=== PATIENT | male | born 1950 | race African-American/Black ===

== ENCOUNTER 2017-03-24 14:00 | Observation (INO) | payer MEDICARE ==
[2017-03-24 17:44] LABS: #Lymphocytes 1.5 thou/uL (1.20-3.40); #Monocytes 0.2 thou/uL (0.11-0.59); #Neutrophils 8.4 thou/uL (1.40-6.50); %Basophils 0.5 % (0.0-1.0); %Eosinophils 0.1 % (0.0-10.0); %Lymphocytes 14.9 % (21.0-51.0); %Monocytes 2.3 % (0.0-10.0); %Neutrophils 82.2 % (42.0-75.0); Hemoglobin 14.4 g/dL (14.0-18.0); Mean Corpuscular HGB CONC 30.4 g/dL (32.0-36.0); Mean Corpuscular Volume 88.9 fl (80.0-94.0); Mean Platelet Volume 8.3 fL (7.4-10.4); Platelet Count 340 thou/uL (130-400); RBC Distribution Width 15.9 % (11.5-14.5); Red Blood Cell (RBC) Count 5.32 mill/uL (4.70-6.10); White Blood Cell (WBC) Count 10.2 thou/uL (4.8-10.8)
[2017-03-24 18:10] LABS: ALT (SGPT) 16 U/L (8-55); AST (SGOT) 15 U/L (5-34); Albumin 4.3 g/dL (3.4-4.8); Alkaline Phosphatase 105 U/L (40-150); Anion Gap 14 mmol/L (10-20); BUN (Urea Nitrogen) 9 mg/dL (8.4-25.7); Bilirubin, Total 0.6 mg/dL (0.2-1.2); Calc. Creatinine Clearance 0 mL/min (70-130); Calcium 9.6 mg/dL (7.8-10.44); Carbon Dioxide 24 mmol/L (23-31); Chloride 103 mmol/L (98-107); Estimated GFR-MDRD Greater than 90; Globulin 4.2 g/dL (2.4-3.5); Glucose 172 mg/dL (80-115); Magnesium 2.1 mg/dL (1.6-2.6); Potassium 3.6 mmol/L (3.5-5.1); Protein, Total 8.5 g/dL (5.8-8.1); Sodium 137 mmol/L (136-145)
[2017-03-24 18:17] LABS: INR-International Normal Ratio 1.3
[2017-03-24 18:24] LABS: CKMB 1.2 ng/mL (0-6.6); Troponin I Less than 0.010 ng/mL (< 0.028)
--- NOTE | 2017-03-24 19:00 | CT ---
NONCONTRAST CT HEAD 03/24/17 HISTORY: Left sided facial weakness. COMPARISON: 01/24/14. FINDINGS: Again noted is the right frontoparietal craniotomy defect. The large area of encephalomalacia in the distribution of the right middle cerebral artery is again seen likely related to remote area of infar ction. Ex vacuo dilatation of the right lateral ventricle is again seen. Previously noted subdural co llection has resolved. There is encephalomalacia also seen in the inferior left frontal lobe. There is decreased attenuation in the periventricular white matter suggesting chronic small vessel is chemic changes, more prominent on the right. There is no evidence of an acute cortical infarction, he morrhage, mass effect, or midline shift. There is an air fluid level partially imaged in the right maxillary antrum with mucous retention cyst in the right sphenoid sinus. Mild mucosal thickening seen in the ethmoidal air cells bilaterally. Ma stoid air cells are clear. No other interval change. IMPRESSION: 1. No acute intracranial abnormality is demonstrated. 2. Areas of encephalomalacia in the distribution of the right middle cerebral artery and in the anterior division of the left middle cerebral artery likely related to remote areas of infarction wit h large area of encephalomalacia seen on the right. 3. Chronic small vessel ischemic changes and cerebral volume loss. 4. Sinus disease. POS: [facility]
--- NOTE | 2017-03-24 19:11 | RAD ---
PORTABLE AP CHEST X-RAY 03/24/17 HISTORY: Seizure. COMPARISON: 04/01/15. FINDINGS: Cardiac silhouette is magnified by projection but stable in size. The pulmonary vasculature is within normal limits. There is increased density at the left lung base probably related to epicardial fat p ad and the enlarged cardiac silhouette. However, atelectasis or small left pleural effusion could not be excluded. The lungs are otherwise clear. No other interval change. IMPRESSION: Findings suggestive of atelectasis and/or small left pleural effusion. Chest is otherwise stable. POS: [facility]
[2017-03-24 19:41] LABS: Bilirubin Negative (Negative); Blood, Urine Small (Negative); Clarity TURBID (Clear); Glucose, Urine (Dipstick) 100 mg/dL (Negative); Leukocyte Trace (Negative); Nitrite Negative (Negative); Protein, Urine (Dipstick) 300 mg/dL (Neg-Trace); Specific Gravity, Urine 1.025 (1.002-1.036); Urobilinogen 0.2 mg/dL (0.2-1.0); pH, Urine 5.5 (5.0-9.0)
[2017-03-24 19:44] LABS: Bacteria/HPF 1+ HPF (None Seen)
[2017-03-24 19:51] LABS: Pathc Cast-AUWi Flag 4.47 (0-2.49)
[2017-03-24 20:02] LABS: Hyaline Casts/LPF NONE SEEN LPF (0-3 Hyaline)
[2017-03-24 20:03] LABS: Manual Microscopic Reviewed? No Path Casts Seen; Other Casts/LPF 0-3 FINELY GRAN LPF (0-3 Hyaline); Renal Epithelial None Seen HPF (0-3); Transitional Epithelial NONE SEEN HPF (0-3)
[2017-03-24 21:03] LABS: Troponin I Less than 0.010 ng/mL (< 0.028)
[2017-03-24 21:54] VITALS: BMI 33.8
[2017-03-24] MEDS ORDERED: Bisacodyl 5 MG TAB PO PRN (23:41)
[2017-03-24] MEDS ORDERED: Acetaminophen 650 MG Suppository PR PRN (23:41)
[2017-03-24] MEDS ORDERED: Acetaminophen 325 MG TAB PO PRN (23:41)
[2017-03-24] MEDS ORDERED: diphenhydrAMINE 25 MG CAP PO PRN (23:43)
[2017-03-24] MEDS ORDERED: cefTRIAXone\\ROCEPHIN 1 GM in Sodium Chloride 0.9% 100 ML IVPB SCH (23:45)
[2017-03-24] MEDS ORDERED: Dextrose 50% Abboject 50 ML SYRINGE SLOW IVP PRN (23:58)
[2017-03-24] MEDS ORDERED: Dextrose 5% in Water 1,000 ML IV PRN (23:58)
[2017-03-24] MEDS ORDERED: HumaLOG 300 UNITS/3 ML VIAL SC PRN (23:58)
[2017-03-25 00:08] LABS: Troponin I Less than 0.010 ng/mL (< 0.028)
[2017-03-25] MEDS ORDERED: WARFARIN PO PRN (00:48)
--- NOTE | 2017-03-25 00:52 | HP ---
PRIMARY CARE PHYSICIAN: Ankur Koroma M.D. CHIEF COMPLAINT: Seizure. HISTORY OF PRESENT ILLNESS: Mr. Hinton is a pleasant 66-year-old gentleman who was seen at [facility] on 03/24/2017. He was brought to the emergency room by his family because he had a seizure that was witnessed by his family. The patient himself is unable to recall what hap pened. According to the family, his eyes were open and he was shaking and unable to talk. He became unresponsive for a while after he stopped shaking. He reportedly had a headache and cough prior to the seizure. The patient at this time denies any chest pain, shortness of breath, fevers or chills. He denies any nausea or vomiting. He reports having a seizure 3 years ago. REVIEW OF SYSTEMS: The following complete review of systems was negative, unless otherwise mentioned in the HPI or below: Constitutional: Weight loss or gain, ability to conduct usual activities. Skin: Rash, itching. Eyes: Double vision, pain. ENT/Mouth: Nose bleeding, neck stiffness, pain, tenderness. Cardiovascular: Palpitations, dyspnea on exertion, orthopnea. Respiratory: Shortness of breath, wheezing, cough, hemoptysis, fever or night sweats. Gastrointestinal: Poor appetite, abdominal pain, heartburn, nausea, vomiting, constipation, or diarr hea. Genitourinary: Urgency, frequency, dysuria, nocturia. Musculoskeletal: Pain, swelling. Neurologic/Psychiatric: Anxiety, depression. Allergy/Immunologic: Skin rash, bleeding tendency. PAST MEDICAL HISTORY: Significant for pulmonary embolism, hypertension, intracranial hemorrhage, sei zure disorder, dyslipidemia, cerebrovascular accident with left-sided weakness, nephrolithiasis, rect al bleed. PAST SURGICAL HISTORY: Significant for craniotomy and PEG tube placement and PEG tube removal. FAMILY HISTORY: Significant for myocardial infarction in his father and diabetes and heart disease i n his mother. SOCIAL HISTORY: He is an ex-smoker. He denies alcohol use or recreational drug use. CODE STATUS: I discussed his code status. He is FULL CODE. ALLERGIES: ACCUPRIL and LISINOPRIL. CURRENT MEDICATIONS: Include amlodipine 10 mg daily, aspirin 81 mg daily, Lipitor 40 mg daily, Benad ryl 25 mg every 6 hours as needed, hydralazine 100 mg 3 times a day, levetiracetam 500 mg 2 times a d ay, losartan 25 mg daily, metformin 500 mg 3 times a day, metoprolol 25 mg 2 times a day, tizanidine 4 mg 3 times a day, Voltaren 75 mg 4 times a day, and warfarin 7.5 mg daily. PHYSICAL EXAMINATION: GENERAL: On examination, Mr. Hinton is awake and alert, not in acute distress. VITAL SIGNS: Blood pressure is 151/91, pulse is 79, he is breathing at rate of 20 and saturating 95% on 2 liters of oxygen. He is afebrile. EYES: No scleral icterus, no conjunctival pallor. ENT: Moist mucosal membranes, no oropharyngeal erythema or exudates. NECK: Supple, nontender, trachea midline. RESPIRATORY: Accessory muscles of breathing are not active. Chest wall movements are symmetric bila terally. LUNGS: Clear to auscultation without wheeze, rhonchi or crepitations. CARDIOVASCULAR: S1 and S2 are heard, regular. LUNGS: Peripheral pulses palpable. No carotid bruit, no pericardial rub. ABDOMEN: Soft, nontender, bowel sounds heard, no hepatomegaly, no splenomegaly. NEUROLOGIC: Speech is slurred. Otherwise, cranial nerves II-XII are intact. Power is 3/5 in the le ft upper extremity, 4+/5 in the left lower extremity, 5/5 in the right upper and lower extremities. No focal sensory deficits. Deep tendon reflexes 2+, plantars downgoing bilaterally. MUSCULOSKELETAL: Power in the 4 extremities as described above. SKIN: No rashes or subcutaneous nodules. LYMPHATIC: No cervical lymphadenopathy. PSYCHIATRIC: Normal mood, normal affect, patient is oriented to person, place, and time. LABORATORY DATA: Mr. Hinton's labs and investigations were reviewed. I reviewed his electrocardio gram, which shows normal sinus rhythm, no ST changes to suggest an acute coronary syndrome. I also r eviewed his chest x-ray, which does not show any pulmonary infiltrates. Radiologist reports left sma ll pleural effusion versus atelectasis. He also had a noncontrast CT scan of the brain, which I did not reveal any acute intracranial abnormality. He had areas of encephalomalacia likely related to pr evious stroke. He also had sinus disease. He has an unremarkable CBC, INR 1.3, normal electrolytes, normal creatinine, unremarkable liver profile and troponin I that is negative x2. Urinalysis is pos itive for protein, glucose, blood, and leukocyte esterase. ASSESSMENT AND PLAN: Mr. Hinton is a pleasant 66-year-old gentleman who was seen at [facility] on 03/24/2017. His problem list includes: 1. Seizures: Mr. Hinton appears to have had a breakthrough seizure. He will be admitted to the ospital and Keppra will be continued. Neurology Service will be consulted for their opinion and poss ible changes to his medications. 2. Urinary tract infection: Suspected, based on urinalysis. The patient denies any urinary symptom s. We will start him on IV ceftriaxone for now and await urine cultures. 3. Pulmonary embolism: INR is subtherapeutic. We will request pharmacy to manage his warfarin. It appears that he had pulmonary embolism in 03/2015. His need for warfarin may need to be reassessed. 4. Hypertension: Monitor vital signs, titrate antihypertensives as needed. 5. Diabetes mellitus type 2. Start Accu-Cheks, insulin sliding scale. Many thanks for allowing me to participate in your patient's care. Please feel free to contact me wi th any questions or concerns. LEVEL OF RISK: High. LEVEL OF COMPLEXITY: High.
[2017-03-25] MEDS ORDERED: cefTRIAXone\\ROCEPHIN 1 GM, Syringe 0.4 ML in Sterile Water 9.6 ML SLOW IVP SCH (01:00)
[2017-03-25 05:20] LABS: INR-International Normal Ratio 1.3; Prothrombin Time 16.5 SEC (12.0-14.7)
[2017-03-25 05:32] LABS: #Basophils 0.1 thou/uL (0.0-0.2); #Eosinphils 0.1 thou/uL (0.0-0.7); #Lymphocytes 3.8 thou/uL (1.20-3.40); #Monocytes 0.6 thou/uL (0.11-0.59); #Neutrophils 5.3 thou/uL (1.40-6.50); %Basophils 0.9 % (0.0-1.0); %Eosinophils 0.7 % (0.0-10.0); %Lymphocytes 38.4 % (21.0-51.0); %Monocytes 6.1 % (0.0-10.0); %Neutrophils 53.8 % (42.0-75.0); Hemoglobin 12.4 g/dL (14.0-18.0); Mean Corpuscular HGB CONC 30.4 g/dL (32.0-36.0); Mean Corpuscular Hemoglobin 26.8 pg (27.0-31.0); Mean Corpuscular Volume 88.1 fl (80.0-94.0); Mean Platelet Volume 9.1 fL (7.4-10.4); Platelet Count 331 thou/uL (130-400); Red Blood Cell (RBC) Count 4.65 mill/uL (4.70-6.10); White Blood Cell (WBC) Count 9.9 thou/uL (4.8-10.8)
[2017-03-25 05:37] LABS: Anion Gap 13 mmol/L (10-20); Carbon Dioxide 21 mmol/L (23-31); Chloride 107 mmol/L (98-107); Potassium 3.7 mmol/L (3.5-5.1); Sodium 137 mmol/L (136-145)
[2017-03-25 05:38] LABS: BUN (Urea Nitrogen) 8 mg/dL (8.4-25.7); Calc. Creatinine Clearance 111 mL/min (70-130); Calcium 8.9 mg/dL (7.8-10.44); Estimated GFR-MDRD Greater than 90; Glucose 125 mg/dL (80-115)
[2017-03-25] MEDS ORDERED: FLU VACC TS2017-18 (>65YR) 0.5 ML SYRINGE IM ONE (09:00)
[2017-03-25] MEDS ORDERED: Prevnar 13-Val Conj/PF 0.5 ML SYRINGE IM ONE (09:00)
[2017-03-25] MEDS ORDERED: Losartan 25 MG TAB PO SCH (09:00)
[2017-03-25] MEDS ORDERED: Atorvastatin Calcium 40 MG TAB PO SCH (09:00)
[2017-03-25] MEDS ORDERED: Metoprolol Tartrate 25 MG TAB PO SCH (09:00)
[2017-03-25] MEDS ORDERED: levETIRAcetam 500 MG TAB PO SCH (09:00)
[2017-03-25] MEDS ORDERED: Amlodipine 10 MG TAB PO SCH (09:00)
[2017-03-25] MEDS: metFORMIN XR 500 MG TAB PO SCH ×2 (10:08→16:03)
[2017-03-25] MEDS: hydrALAZINE 25 MG TAB PO SCH ×2 (10:08→16:03)
[2017-03-25] MEDS: tiZANidine HCl 4 MG TAB PO SCH ×2 (10:09→16:03)
[2017-03-25] MEDS ORDERED: Warfarin Sodium 7.5 MG TAB PO SCH (17:00)
[2017-03-25] MEDS ORDERED: Diclofenac Sodium 25 mg Tablet PO SCH (17:00)
--- NOTE | 2017-03-25 17:38 | PRG ---
DATE OF SERVICE: 03/25/2017 Mr. Hinton is the patient of Dr. Abrams. He has been treated with Keppra for his seizure disorder related to a prior right hemispheric stroke. He refused to take his medicine and as a result had br eakthrough seizure. His reports he had not had any seizures in the last year. She has to crush all his medicines due to his chronic dysphagia related to the prior stroke. He does not have a PEG tube any longer. I would suggest continuing Keppra 500 mg twice a day and I will follow up with him as an outpatient.
[2017-03-25 19:29] VITALS: BP 104/63; TEMP 98.6
--- NOTE | 2017-03-25 23:51 | DIS ---
DATE OF ADMISSION: 03/24/2017 DATE OF DISCHARGE: 03/25/2017 DISCHARGE DIAGNOSES: 1. Breakthrough seizure secondary to Keppra noncompliance. 2. History of pulmonary embolism on chronic Coumadin. 3. Hypertension, stable. 4. Diabetes mellitus type 2, stable. 5. History of cerebrovascular accident with residual left hemiparesis. CONSULTATIONS: Dr. Valerio with Neurology Service. PERTINENT LABORATORY AND X-RAY FINDINGS: Basic metabolic profile within normal limits. Troponin I n egative x3. Prolactin level 7.35. CBC within normal limits. PT 16.5, INR 1.3 on 03/25/2017. Lorin ble chest x-ray dated 03/24/2017 showed no acute cardiopulmonary process. CT of the brain without co ntrast dated 03/24/2017 showed no acute intracranial process. Encephalomalacia of the right middle c erebral artery territory and anterior division of the left middle cerebral artery consistent with valentín or infarct. Chronic ischemic small vessel changes noted. HOSPITAL COURSE: Patient was observed on the stroke unit after initially presenting with breakthroug h seizure in the context of known seizure disorder after a prior CVA. The patient with difficulty sw allowing current Keppra pills due to prior CVA. Recommendations are for liquid Keppra for ease of ad ministration and consistent dosing. The patient was evaluated metabolically and with CT imaging show ing no evidence of acute process. Telemetry monitoring showed sinus mechanism without evidence of ac [employer] arrhythmia or dysrhythmia. The patient overall remained clinically stable throughout the hospita l course and exhibited no evidence of recurrent seizure activity. The patient is ready for discharge 03/25/2017. DISCHARGE MEDICATIONS: 1. Amlodipine 10 mg 1 tab p.o. daily. 2. Aspirin 81 mg 1 tab p.o. daily. 3. Lipitor 40 mg 1 tab p.o. daily. 4. Benadryl 25 mg p.o. q.6 hours p.r.n. 5. Hydralazine 100 mg p.o. t.i.d. 6. Keppra oral solution 100 mg per mL, 5 mL p.o. b.i.d. 7. Losartan 25 mg 1 tab p.o. daily. 8. Metformin ER 500 mg p.o. t.i.d. 9. Metoprolol tartrate 25 mg p.o. b.i.d. 10. Tizanidine 4 mg p.o. t.i.d. 11. Voltaren XR 75 mg p.o. q.i.d. 12. Coumadin 7.5 mg p.o. daily. FOLLOWUP: Patient will follow up with Dr. Turner Koroma within 7 days of discharge. CONDITION ON DISCHARGE: Stable. ACTIVITY: Ad dennis. DIET: Heart healthy and ADA. CODE STATUS: FULL. DISPOSITION: Home on 03/25/2017.
--- NOTE | 2017-04-03 17:05 | EKG ---
Test Reason : Blood Pressure : / mmHG Vent. Rate : 103 BPM Atrial Rate : 103 BPM P-R Int : 174 ms QRS Dur : 090 ms QT Int : 374 ms P-R-T Axes : 033 -08 008 degrees QTc Int : 489 ms Sinus tachycardia Nonspecific T wave abnormality Abnormal ECG Confirmed by MODESTO HUGHES D.O. ([id number]), art editor KRISTIAN MOSQUERA ([id number]) on 04/03/2017 5:04:13 PM Referred By: Confirmed By:MODESTO UHGHES D.O.
== END 2017-03-25 21:33 | disposition home or self-care (01) ==
LOC: ERS 14:00 → INTOOBSV 21:42 → 2NO 21:42 → 2SE 03-25 12:10
PROVIDERS: ADMIT Internal Medicine Infectious Disease; ATTEND Internal Medicine Infectious Disease
DX: G40.909 Epilepsy, unspecified, not intractable, without status epilepticus (principal); I69.254 Hemiplegia and hemiparesis following other nontraumatic intracranial hemorrhage affecting left non-dominant side; I10 Essential (primary) hypertension; E11.9 Type 2 diabetes mellitus without complications; E78.5 Hyperlipidemia, unspecified; E78.00 Pure hypercholesterolemia, unspecified; R79.1 Abnormal coagulation profile; Z91.14 Patient's other noncompliance with medication regimen; Z86.711 Personal history of pulmonary embolism; Z87.891 Personal history of nicotine dependence; Z79.01 Long term (current) use of anticoagulants; Z79.82 Long term (current) use of aspirin; Z79.84 Long term (current) use of oral hypoglycemic drugs; Z79.899 Other long term (current) drug therapy; Z88.8 Allergy status to other drugs, medicaments and biological substances; Z98.890 Other specified postprocedural states
CPT/HCPCS: 70450; 71045; 80048; 80053; 82553; 82962; 83735; 84146; 84484 ×2; 85025 ×2; 85610 ×2; 87086; 90670; 93005; 96374; 99285; G0009; G0378 ×2; 36415; 36416; 81003; 81015; 90471; 90682; A4216; G0008; J0696; Q2036

== ENCOUNTER 2020-09-16 16:34 | Emergency (ER) | payer OTHER, MEDICARE | END 2020-09-16 22:25 | disposition home or self-care (01) | LOC: ERS 16:34 | DX: S16.1XXA Strain of muscle, fascia and tendon at neck level, initial encounter (principal); M54.5 Low back pain; E78.5 Hyperlipidemia, unspecified; E78.00 Pure hypercholesterolemia, unspecified; I10 Essential (primary) hypertension; V59.9XXA Occupant (driver) (passenger) of pick-up truck or van injured in unspecified traffic accident, initial encounter | CPT/HCPCS: 72125; 72131 ==